=== PATIENT | male | born 1955 | race Caucasian/White ===

== ENCOUNTER 2017-08-05 23:26 | Emergency (ER) | payer OTHER ==
[2017-08-06 00:11] LABS: ADD MAN DIFF? NO
[2017-08-06 00:13] LABS: BASOPHILS % 0.6 % (0.0-2.0); EOSINOPHILS # 0.3 10^3/ul (0.0-0.5); EOSINOPHILS % 4.7 % (0.0-7.0); HEMATOCRIT 44.3 % (42.0-52.0); HEMOGLOBIN 14.8 g/dl (14.0-18.0); LYMPHOCYTES % 28.3 % (15.0-51.0); MEAN CORPUSCULAR HEMOGLOBIN 27.7 pg (29.0-33.0); MEAN CORPUSCULAR HGB CONC 33.4 g/dl (32.0-37.0); MEAN CORPUSCULAR VOLUME 82.8 fl (82.0-101.0); MONOCYTE # 0.6 10^3/ul (0.3-0.9); MONOCYTES % 8.9 % (0.0-11.0); NEUTROPHILS % 57.2 % (39.0-77.0); PLATELET COUNT 195 10^3/UL (140-415); RED BLOOD COUNT 5.35 10^6/ul (4.70-6.10); RED CELL DISTRIBUTION WIDTH 13.5 % (11.5-14.5)
[2017-08-06] MEDS: LABETALOL HCL 20MG INJ IV ×3 (00:16→00:28)
[2017-08-06 00:30] LABS: ANION GAP 14 (8-16); BLOOD UREA NITROGEN 19 mg/dl (7-20); CALCIUM 9.7 mg/dl (8.4-10.2); CARBON DIOXIDE 26 mmol/L (21-31); CHLORIDE 105 mmol/L (97-110); CREATININE 1.16 mg/dl (0.61-1.24); GLUCOSE 127 mg/dl (70-220); POTASSIUM 3.8 mmol/L (3.5-5.1); SODIUM 141 mmol/L (135-144)
[2017-08-06 00:42] LABS: TROPONIN-I < 0.012 ng/ml (0.00-0.12)
[2017-08-06] MEDS: LISINOPRIL 10 MG TAB PO (01:42)
== END 2017-08-06 01:45 | disposition home or self-care (01) ==
LOC: E/R 08-06 01:45
DX: I10 Essential (primary) hypertension (principal); E11.9 Type 2 diabetes mellitus without complications; Z87.891 Personal history of nicotine dependence
CPT/HCPCS: 36415; 71045; 80048; 84484; 85025; 93005; 99285-25